=== PATIENT | male | born 1965 | race Caucasian/White ===

== ENCOUNTER 2024-07-03 05:23 | Observation (INO) ==
--- NOTE | 2024-05-29 15:37 | PAT Medication Instructions ---
Medication Instructions Date of Service May 29, 2024 Home Medications [place] 3 1 tab PO DAILY bictegravir 50 mg-emtricitabine 200 mg-tenofovir alafenam 25 mg tablet (Biktarvy) 1 tab PO HS omeprazole 40 mg capsule,delayed release 40 mg PO QAM rivaroxaban 20 mg tablet (Xarelto) 20 mg PO QAM rosuvastatin 20 mg tablet 20 mg PO QAM ASK your prescriber and surgeon bictegravir 50 mg-emtricitabine 200 mg-tenofovir alafenam 25 mg tablet (Biktarvy) 1 tab PO HS rivaroxaban 20 mg tablet (Xarelto) 20 mg PO QAM (From anesthesia perspective, Rivaroxaban/Xarelto needs to be stopped 72 hours/3 days before surgery. Please check if okay with doctor that prescribes this to you) STOP taking 2 weeks before surgery (or as soon as possible if surgery is within 2 weeks) [place] 3 1 tab PO DAILY Take morning of surgery With a small sip of water, OTHERWISE NOTHING TO EAT OR DRINK AFTER MIDNIGHT: omeprazole 40 mg capsule,delayed release 40 mg PO QAM rosuvastatin 20 mg tablet 20 mg PO QAM Other Notes If you have any questions please call us at [phone] or [phone] or [phone] or [phone]
--- NOTE | 2024-06-07 12:01 | Anesthesiology Consultation ---
Date of Service June 07, 2024 Assessment & Plan (1) Encounter for pre-operative examination: - Infectious disease screening: Per assessment on 06/07/24- No known recent infectious disease contacts or current infectious disease symptoms. - Outpatient joint assessment: Pt currently scheduled for inpatient pathway. If surgeon requests review for outpatient joint pathway, patient is not recommended candidate for outpatient joint program from anesthesia standpoint based on available information. - Xarelto instructions: patient made aware that for neuraxial anesthesia, Xarelto needs to be held 72 hours/3 days prior to surgery. Patient voiced understanding/will check if okay with prescriber. - Cardiology visit (06/30/23): He has had a history of syncope for many years.. mostly triggered by coughing, laughing, or standing up too quickly.. noted to have a DVT and PE's in March 2022.. He wore an extended Holter which did show a nocturnal pause of 3.1 seconds and an episode of [place] I, also while sleeping, but at least 2 episodes during the waking hours. He had no patient triggered episodes.. loop recorder implanted which showed nocturnal bradycardia. He has since started on CPAP due to sleep apnea, which is helping. There have been no concerning findings on the loop recording interrogation.. he has not had any syncope since February 2022.. He is now treated for sleep apnea and has had no concerning findings on loop recorder interrogation and no further episodes of syncope." ILR removed. No issues since. - Infectious disease note (12/22/23): Patient "medically cleared" for surgery. HIV "medication taken daily. HIV RNA viral load is 0/undetectable" - Patient acceptable risk for surgery pending upcoming PCP office visit note (Dr. Rowe/[facility], appt /). Chart Review Chart Review: Patient seen in Pre Admission Testing Teaching & Discussion Pre-Anesthesia Teaching/Discussion Notes: Instructed NPO after midnight before surgery,except medications with 15 cc of water. Medication instructions provided according to the PAT guidelines. History Surgery Operation Date: 07/03/24 07:00 Proposed Procedures p Left Total Knee Arthroplasty - Akash Jara MD Height/Weight Height: 5 ft 7 in Weight: 98.4 kg Allergies Allergy/AdvReac Type Severity Reaction Status Date / Time No Known Allergies Allergy Verified 05/29/24 14:32 Medications Home Medications Medication Instructions Recorded Confirmed Last Taken [place] 3 1 tab PO DAILY 05/29/24 05/29/24 Unknown bictegravir 50 mg-emtricitabine 1 tab PO HS 05/29/24 05/29/24 Unknown 200 mg-tenofovir alafenam 25 mg tablet (Biktarvy) omeprazole 40 mg capsule,delayed 40 mg PO QAM 05/29/24 05/29/24 Unknown release rivaroxaban 20 mg tablet (Xarelto) 20 mg PO QAM 05/29/24 05/29/24 Unknown rosuvastatin 20 mg tablet 20 mg PO QAM 05/29/24 05/29/24 Unknown Past Medical History Medical History Acid reflux Dyslipidemia History of COVID-19 (11/2023) Symptoms resolved History of skin cancer Basal cell, face HIV (human immunodeficiency virus infection) Hx of deep venous thrombosis LLE DVT > PE (2021) Taking Xarelto Hx of hepatitis Unknown type ~20 years ago- treated/"resolved" Hx of Lyme disease ~2009, treated Hx pulmonary embolism LLE DVT > PE (2021) Taking Xarelto Sleep apnea CPAP (compliant) Exercise / Class Metabolic Activity II 4-5 Yardwork/Stairs/Walk up hill (one FS: No CP, no SOB) Past Surgical History Surgical History History of loop recorder (2021) Following DVT/PE, since removed History of mandibular surgery Hx of arthroscopic knee surgery left Hx of colonoscopy Past Anesthesia History No Hx of Anesthesia Complications Mother: Slow to wake History of PONV No Hx of PONV and No Hx of Motion Sickness Social History Smoking Status: Never smoker Do You Dip or Chew Tobacco: No Hx Alcohol Use: Yes alcohol intake frequency: a few times a month Hx Substance Use: No substance use type: does not use Review of Systems Patient denies chest pain, shortness of breath, dyspnea on exertion, fever, chills, cough, wheezing, palpitations. Physical Exam Vital Signs BP 119/81 P 58 TEMP 98.5 SP02 95%RA RESP 16 Physical Full cervical extension range of motion. Full TMJ range of motion. TMD > 3.5 finger breaths Mallampati Score II Dentition: intact Lungs: clear throughout to auscultation Cardiac: regular rate and rhythm, no murmurs noted Spine: normal Carotid arteries: negative bruit Extremities: no LE edema Short neck Lab Results Anesthesia Preop Results Results Anesthesia Widget: WBC 6.91 K/ul (4.8-10.8) 06/07/24 Hgb 16.0 g/dl (14.0-18.0) 06/07/24 Hct 44.2 % (42.0-52.0) 06/07/24 Plt 153 K/uL (130-400) 06/07/24 Na 139 mmol/L (136-145) 06/07/24 K 4.1 mmol/L (3.5-5.1) 06/07/24 Cl 105 mmol/L (98-107) 06/07/24 CO2 29 mmol/L (21-32) 06/07/24 BUN 19 mg/dl (6-23) 06/07/24 Creat 1.27 mg/dl (0.6-1.4) 06/07/24 Glucose Level 88 mg/dl (70-99(Fasting)) 06/07/24 PT 12.8 Seconds (9.0-12.0) H 06/07/24 PTT 35 Seconds (21-31) H 06/07/24 INR 1.2 (0.9-1.1) H 06/07/24 Urine Color Yellow 06/07/24 Urine Appearance Clear (Clear) 06/07/24 Urine pH 5.5 (4.5-7.5) 06/07/24 Urine Specific Hansen 1.020 (1.000-1.030) 06/07/24 Urine Protein Negative (Negative) 06/07/24 Urine Glucose (UA) Negative (Negative) 06/07/24 Urine Ketones Negative (Negative) 06/07/24 Urine Blood Negative (Negative) 06/07/24 Urine Nitrite Negative (Negative) 06/07/24 Urine Bilirubin Negative (Negative) 06/07/24 Urine Urobilinogen Negative (Negative) 06/07/24 Urine Leukocyte Esterase Negative (Negative) 06/07/24 Blood Type A Positive 06/07/24 Antibody Screen NEGATIVE 06/07/24 Testing Laboratory Results Elevated coags- patient taking Xarelto* Electrocardiogram Date: 06/07/24 SB with first degree AVB at 55bpm. iRBBB. Chest X-Ray Date: 06/07/24 IMPRESSION: 1. An elevated right hemidiaphragm is seen. 2. No definite consolidation or pleural effusion is seen. 3. Cardiomegaly is seen.
[2024-07-03] MEDS: LR 500ML BOLUS, THEN 15ML/HR IV SCH (05:49)
[2024-07-03] MEDS: ACETAMINOPHEN 500 MG TAB PO SCH ×2 (05:49→14:04)
[2024-07-03] MEDS: Scopolamine 1 MG TDSY TD SCH (05:49)
[2024-07-03] MEDS: CeleBREX 200 MG CAP PO SCH (05:50)
[2024-07-03] MEDS: LR 60ML/HR IV SCH (05:50)
[2024-07-03] MEDS ORDERED: BUPIVACAINE 0.5 % 5 MG/1 ML PF 10ML VIAL ONE (06:21)
[2024-07-03] MEDS ORDERED: ROPIVACAINE 0.5% 5 MG/ML 30 ML VIAL ONE (06:21)
[2024-07-03] MEDS ORDERED: fentaNYL citrate PF 100 MCG/2 ML VIAL ONE ×2 (06:24→06:42)
[2024-07-03] MEDS ORDERED: MIDAZOLAM HCL 1 MG/ML 2ML VIAL ONE ×2 (06:24→06:42)
[2024-07-03] MEDS ORDERED: ONDANSETRON INJ 2 MG/ML 2 ML VIAL IV PRN ×2 (06:39→11:09)
[2024-07-03] MEDS ORDERED: fentaNYL citrate PF 100 MCG/2 ML VIAL IV PRN (06:39)
[2024-07-03] MEDS ORDERED: ATROPINE SULFATE 0.1 MG/ML 10ML SYR IV PRN (06:39)
[2024-07-03] MEDS ORDERED: ePHEDrine sulfate 50 MG/ML AMP IV PRN (06:39)
--- NOTE | 2024-07-03 06:40 | History & Physical Bridge Note ---
Date of Service July 03, 2024 History & Physical Bridge Note I have examined the patient, reviewed the History & Physical and in the interval since the performance of the History & Physical I have noted the following changes of clinical significance: no changes noted
[2024-07-03] MEDS: TRANEXAMIC ACID 1,000 MG **IV Pre-op IV SCH (06:43)
[2024-07-03] MEDS: ceFAZolin 2000MG 2,000 MG/15 ML SYR IV SCH ×2 (07:07→14:05)
[2024-07-03] MEDS ORDERED: PROPOFOL IV EMULSION 10 MG/ML 20 ML VIAL IV ONE (07:12)
[2024-07-03] MEDS ORDERED: KETAMINE HCL 10MG/ML SYR ONE (08:12)
[2024-07-03] MEDS: ROPIV 0.5% 246mg, Ketorolac 30mg, EPINEPHrine 0.5mg in NSS INFIL SCH (08:12)
[2024-07-03] MEDS: ORTHO JOINT ANESTHETIC ONE (08:12)
--- OUTSIDE RECORDS SUMMARY | 2024-07-03 08:31 | External Medical Summary | Continuity of Care Document ---
Author Name Unknown Organization [address] Address [address] [place] [phone] Care Team Providers Care Senior Customer Service Representative Name Role Phone Aric Ramirez Primary Care Physician [phone] Encounter [facility] [id number] Date(s): 06/07/24 - 06/07/24 [facility] [place] [address] [place] [id number] [address] Encounter Diagnosis Left knee pain(Discharge Diagnosis) - 06/07/24 S/P knee replacement(Discharge Diagnosis) - 06/07/24 Discharge Disposition: Home or Self Care Attending Physician: MD Marek, Akash A Encounter Type: Clinic Allergies, Adverse Reactions, Alerts No Known Allergies Assessment and Plan Extracted from: Title:Pre-Op Author:TOÑO Clark Madison Date :06/07/24 1.Left knee pain secondary to severe OA, pre op for LTKA The risks and benefits of surgery as well as the post operative course was explained and discussed with the patient. Written consent obtained. The patient's past medical history, surgeries, social history, medication list, allergies and PDMP were reviewed and confirmed with the patient. Patientdebbiell needmedical clearance. He is going to ask hisPCP when he needs to stop his xarelto and if hecan take celebrex with his xarelto after sx. He has appt with PAT.Preoperative orders were placed. We discussed postoperative pain medications includingoxycodone, tylenol, celebrex, (if cleared by PCP) as well as icing and elevating to control pain. We discussed post operative DVT prophylaxis,Patient will resume their previous anti-coagulation- xarelto. Patientmay needthe following additional medications after surgery -stool softener as needed to prevent constipation while on narcotics, Multi- vitamin OR Vitamin C 500mg BID x 2 weeks, Iron 324mg BID x 2 weeks to promote healing. The patient has been scheduled for post operative appointments.He will be doing physical therapy closer to home. Order was placed for walker and home PT for the first 2 weeks as well. The patient was given a preoperative booklet and we reviewed the most pertinent things leading up to the surgery and the day of surgery; including any assisted devices pt may need, when/who to call for the surgery time, where to arrive the day of surgery, NPO after midnight, medications to hold, prepping the skin with CHG to prevent infection etc. All of their questions and concerns were answered today. They were instructed to call our office if they have any further questions or concerns. Immunizations Given and Recorded Vaccine Date Status Refusal Reason influenza virus vaccine, inactivated 02/16/18 Give n influenza virus vaccine, inactivated 03/24/17 Give n influenza virus vaccine, inactivated 03/03/16 Vasquez rded influenza virus vaccine, inactivated 03/06/15 Give n influenza virus vaccine, inactivated 04/29/14 Give n influenza virus vaccine, inactivated 01/25/12 Vasquez rded influenza virus vaccine, inactivated 05/06/10 Vasquez rded influenza virus vaccine, inactivated 03/11/09 Vasquez rded pneumococcal 13-valent vaccine 05/29/12 Recorded pneumococcal 13-valent vaccine 04/18/11 Recorded pneumococcal 13-valent vaccine 05/06/10 Recorded pneumococcal 13-valent vaccine 08/06/99 Recorded tetanus/diphtheria/pertuss, acel (Tdap) 04/13/11 R ecorded influenza virus vaccine, H1N1 04/14/09 Recorded hepatitis B adult vaccine 10/16/03 Recorded hepatitis B adult vaccine 05/24/03 Recorded hepatitis B adult vaccine 04/15/03 Recorded hepatitis A adult vaccine 10/16/03 Recorded hepatitis A adult vaccine 04/15/03 Recorded Medications Biktarvy 50 mg-200 mg-25 mg oral tablet Start: 01/27/24 8:21:00 AM EDT, 1 tab, PO, Daily, Biktarvy dose for patients who weigh 25 kg and over Start Date: 01/27/24 Status: Ordered Repeat number: 1 Euflexxa 10 mg/mL intra-articular solution Start: 12/26/23 1:35:00 PM EDT, 20 mg =, intra-articular, q7days, Disp# 6 mL, Refills: 0, 3 syringes for L knee. Please ship to physician's office: Juaquin Jayde Hanson. [address] [place] [address], Note to Pharmacy: L KNEE JOSÉ LUIS [email or web address], Pharmacy: [facility] Start Date: 12/26/23 Stop Date: 01/16/24 Status: Ordered Quantity: 6.0 Unit: mL Repeat number: 1 glucosamine Start: 07/17/15 8:14:00 AM EDT Start Date: 07/17/15 Status: Ordered Repeat number: 1 multivitamin Start: 07/17/15 8:14:00 AM EDT, 1 tab, PO, Daily Start Date: 07/17/15 Status: Ordered Repeat number: 1 omega-3 polyunsaturated fatty acids ethyl esters 1000 mg oral capsule Start: 04/24/19 9:48:00 AM EST, See Instructions, Disp# 360 cap, Refills: 3, TAKE 2 CAPSULES TWICE A DAY, Pharmacy: [facility] Start Date: 04/24/19 Status: Ordered Quantity: 360.0 Unit: cap Repeat number: 4 PriLOSEC 20 mg oral delayed release capsule Start: 07/17/15 8:15:00 AM EDT Start Date: 07/17/15 Status: Ordered Repeat number: 1 rosuvastatin 10 mg oral tablet Start: 04/24/19 9:48:00 AM EST, See Instructions, Disp# 90 tab, Refills: 3, TAKE 1 TABLET DAILY, Pharmacy: [facility] Start Date: 04/24/19 Status: Ordered Quantity: 90.0 Unit: tab Repeat number: 4 Triumeq oral tablet Start: 04/24/19 9:48:00 AM EST, See Instructions, Disp# 90 tab, Refills: 3, TAKE 1 TABLET DAILY, Pharmacy: [facility] Start Date: 04/24/19 Status: Ordered Quantity: 90.0 Unit: tab Repeat number: 4 Vitamin B12 Start: 02/16/18 8:11:00 AM EDT Start Date: 02/16/18 Status: Ordered Repeat number: 1 Vitamin D3 Start: 06/01/23 3:06:00 PM EST, 2,000 mcg =, PO, Daily Start Date: 06/01/23 Status: Ordered Repeat number: 1 Xarelto 20 mg oral tablet Start: 01/27/24 8:21:00 AM EDT Start Date: 01/27/24 Status: Ordered Repeat number: 1 Mental Status 06/07/24 Barriers to Learning one year None evide nt Mandatory Health Literacy Documentation Yes Health Literacy Communication Barriers N ever Primary Language [place] Problem List Condition Confirmation Course Effective Dates Status H ealth Status Informant Chronic kidney disease Confirmed Active DVT (deep venous thrombosis) Confirmed Active ED (erectile dysfunction) Confirmed Active Effusion of knee Confirmed Active Hearing loss in left ear Confirmed Active HIV positive Confirmed Active 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 Hyperlipidemia Confirmed Active DJD (degenerative joint disease) of knee Confirmed Active OA (osteoarthritis) of knee Confirmed Active Left knee pain Confirmed Active Rash 1 Confirmed Active Weight monitoring Confirmed Active 1poss scabies Diagnosis Diagnosis Type Effective Dates Health Status Clinical Service Informant Left knee pain Discharge Diagnosis 06/07/24 S/P knee replacement Discharge Diagnosis 06/07/24 Non-Specified Procedures Procedure Date Related Diagnosis Body Site Status Colonoscopy 1 04/14/18 Completed Jaw Completed Knee, left bone fragment removal Completed 1sigmoid diverticulosis, 8mm ascending colon polypectomy: 5 year recall Vital Signs Most recent to oldest [Reference Range]: 1 Height 168 cm (06/07/24 10:45 AM) Patient Weight 99 kg (06/07/24 10:45 AM) Body Mass Index 35.08 kg/m2 (06/07/24 10:45 AM) Temperature [36.5-37.9 DegC] 36.5 DegC (06/07/24 10:45 AM) Heart Rate 80 bpm (06/07/24 10:45 AM) Blood Pressure 130/80mmHg (06/07/24 10:45 AM) Cuff Pulse Pressure 50 mmHg (06/07/24 10:45 AM) Social History Social History Type Response Smoking Status Never smoked cigaret jac Sex Male Sex Representation Male (finding) Ortho Outpt Note * TOÑO Clark Madison: PERFORM Event Display: Ortho Outpt Note Authored Date: [id number] Procedure: Left total knee arthroplastywith Dr. Jara Chief Complaint L knee consent History of Present Illness Patient is a59 year-oldfemalepresenting today for their pre-operative history and physical examination for the above-noted surgery with Merry. He has had a longstanding history of knee arthritis that he was initially treated with cortisone and Euflexxa injections in oral anti-inflammatories. These started to not be as beneficial for him and he elected to proceed with total knee replacement. Review of Systems DeniesRecent illnesses, colds/flu, pneumonia, COVID or COVID exposures; DeniesFevers, chills, malaise; DeniesChest pain, heart palpitations; DeniesShortness of breath, cough; DeniesHeadacheor blurry vision; DeniesAbdominal pain, nausea, vomiting, diarrhea, or urinary symptoms Physical Exam Vitals & Measurements T:36.5C HR:80(Monitored) BP:130/80 SpO2:97% HT:168cm WT:99kg WT:99.000kg(Dosing) BMI:35.08 General: Pt is well nourished, seated on the exam table AA&O, in NAD, calm and cooperative during exam HENT: Nontraumatic, no gross deformity, hearing and vision grossly in-tact, PERRL Heart: +S1, +S2, RRR, no murmurs appreciated Lungs: CTABL, no wheezing appreciated LeftKnee: Pt ambulateswithoutassisted devices with anantalgicgait Skin was intact.mildeffusion,noecchymosis,noerythema mildTTP overmedial joint line ROM: 0-100 Leftlower extremity strength: 5/5knee flexion and5/5extension;5/5 DF,5/5 PF Nolaxity of MCL with valgus stress at 0 and 30 degrees.Nolaxity of LCL with varus stress at 0and 30 degrees -Anterior drawer,-posterior drawer,-Eric's NVI distallywith 2+ DP pulse and no signs of vascular or lymphatic insufficiency Diagnostic Results Bilateral hips to ankles, Bilateral 45flexion, AP standing and left knee lateral and sunrise views obtained 06/01/[address] Card medial joint space narrowing, bone on bone. Marginal osteophytes with no acute fracture or dislocation. 16varus on left, 1varus on right. Assessment/Plan 1.Left knee pain secondary to severe OA, pre op for LTKA The risks and benefits of surgery as well as the post operative course was explained and discussed with the patient. Written consent obtained. The patient's past medical history, surgeries, social history, medication list, allergies and PDMP were reviewed and confirmed with the patient. Patientmarixa needmedical clearance. He is going to ask hisPCP when he needs to stop his xarelto and if hecan take celebrex with his xarelto after sx. He has appt with PAT.Preoperative orders were placed. We discussed postoperative pain medications includingoxycodone, tylenol, celebrex, (if cleared by PCP) as well as icing and elevating to control pain. We discussed post operative DVT prophylaxis,Patient will resume their previous anti-coagulation- xarelto. Patientmay needthe following additional medications after surgery -stool softener as needed to prevent constipation while on narcotics, Multi-vitamin OR Vitamin C 500mg BID x 2 weeks, Iron 324mg BID x 2 weeks to promote healing. The patient has been scheduled for post operative appointments.He will be doing physical therapy closer to home. Order was placed for walker and home PT for the first 2 weeks as well. The patient was given a preoperative booklet and we reviewed the most pertinent things leading up to the surgery and the day of surgery; including any assisted devices pt may need, when/who to call for the surgery time, where to arrive the day of surgery, NPO after midnight, medications to hold, prepping the skin with CHG to prevent infection etc. All of their questions and concerns were answered today. They were instructed to call our office if they have any further questions or concerns. 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 Hyperlipidemia Left knee pain OA (osteoarthritis) of knee Rash Weight monitoring Procedure/Surgical History Colonoscopy| Service Date: 04/14/2018JawKnee, left bone fragment removal Medications abacavir/dolutegravir/lamiVUDine(Triumeq oral tablet), See Instructions, 3 refills bictegravir/emtricitabine/tenofovir(Biktarvy 50 mg-200 mg-25 mg oral tablet), 1 tab, PO, Daily cholecalciferol(Vitamin D3), 2000 mcg, PO, Daily cyanocobalamin(Vitamin B12) glucosamine multivitamin, 1 tab, PO, Daily omega-3 polyunsaturated fatty acids(omega-3 polyunsaturated fatty acids ethyl esters 1000 mg oral capsule), See Instructions, 3 refills omeprazole(PriLOSEC 20 mg oral delayed release capsule) rivaroxaban(Xarelto 20 mg oral tablet) rosuvastatin(rosuvastatin 10 mg oral tablet), See Instructions, 3 refills sodium hyaluronate(Euflexxa 10 mg/mL intra-articular solution), 20 mg, intra- articular, q7days Allergies NKA Social History Smoking Status Never smoked cigarettes Alcohol - Comments: occasionally Tobacco - Denies Tobacco Use Family History Family history is unknown Immunizations Vaccine Date Status influenza virus vaccine, inactivated 02/16/2018 Given influenza virus vaccine, inactivated 03/24/2017 Given influenza virus vaccine, inactivated 03/03/2016 Recorded influenza virus vaccine, inactivated 03/06/2015 Given influenza virus vaccine, inactivated 04/29/2014 Given pneumococcal 13-valent vaccine 05/29/2012 Recorded influenza virus vaccine, inactivated 01/25/2012 Recorded pneumococcal 13-valent vaccine 2011 Recorded tetanus/diphtheria/pertuss, acel (Tdap) 04/13/2011 Recorded pneumococcal 13-valent vaccine 05/06/2010 Recorded influenza virus vaccine, inactivated 05/06/2010 Recorded influenza virus vaccine, H1N1 04/14/2009 Recorded influenza virus vaccine, inactivated 03/11/2009 Recorded hepatitis B adult vaccine 10/16/2003 Recorded hepatitis A adult vaccine 10/16/2003 Recorded hepatitis B adult vaccine 05/24/2003 Recorded hepatitis B adult vaccine 04/15/2003 Recorded hepatitis A adult vaccine 04/15/2003 Recorded pneumococcal 13-valent vaccine 08/06/1999 Recorded Recommendations Health Maintenance Pending(in the next year) OverDue Lipid Screening due02/16/23and every 1826day Colorectal Cancer Screening due04/14/23and every 5year Adult Influenza Vaccine due10/17/23and every 1year Due Adult COVID-19 Vaccination due06/07/24Unknown Frequency Adult Social Determinants of Health Screening due06/07/24Unknown Frequency Adult Tdap/Td Vaccine due06/07/24Unknown Frequency Pneumococcal Vaccine Adults and Adolescents with Chronic Illness due06/07/24One-time only Shingles Vaccine due06/07/24One-time only Satisfied(in the past 1 year) Satisfied Body Mass Index on06/07/24.Satisfied by EMILI Emanuel Kennie L Electronic Signature on File Electronically Reviewed/Signed by: Allison Clark PA-C Author Signature Dt/Tm:06/07/2024 03:08 PM Physician Estimator, Dept. of Orthopaedics and Sports Medicine [facility] - [address], [address] [place] [address] Electronically Reviewed/Signed by: MD Dara Tannerigner Signature Dt/Tm: 06/07/2024 04:23 PM [facility] Department of Orthopaedics and Rehabilitation [facility] [address], [place] [address] MK * Sara Welch: PERFORM, MODIFY Event Display: Ortho Outpt Note Authored Date: [id number] Name:SON QUINTANA Patient Number:[id number] :[id number] Date of Service:06/07/2024 CHIEF COMPLAINT: F/u left knee pain, pre-op visit HPI: Mini Wright presents today for f/uleft knee pre-opvisit. He completed the series of Euflexxa injections on 02/20/2024, which he states did not help alleviate his pain at all. In 2021, he had a blood clot and has since been taking Xarelto. Today he rates his pain as a 3/10. PHYSICAL EXAM: Focusing on the patient'sleftlower extremity: 2+ DP pulse Sensation to light touch is intact Motor to the gastroc soleus, tibialis anterior, and EHL is 5/5. Able to perform straight leg raise. + Medialjoint line tenderness. -Ashley's Ligamentous examination exhibits:stable [id number] anterior translation andfirm endpoint Posterior drawerstable Varus stress at 5 and 30stable Valgus stress at 5 and 30stable Trace Effusion Range of motion 5 to 120 + Medial patellar facet tenderness RADIOGRAPHY: Bilateral hips to ankles, Bilateral 45 flexion, AP standing and left knee lateral and sunrise views obtained 06/01/23 andreviewed by kavitha medial joint space narrowing, bone on bone. Marginal osteophytes with no acute fracture or dislocation. 16 varus on left, 1 varus on right. IMPRESSION: 59 year old male with left knee pain secondary to severeOA with varus alignment. GOAL: Decrease pain PLAN: After a lengthy discussion with the patient today regarding my above clinical findings, as well as reviewing their imaging with them, their treatment options of conservative management versus surgical intervention were discussed. - The risk and benefits of each were discussed. - Keep visit with PCP in early June to discuss Xarelto prescription with Celebrex. - The risks of surgery included but not limited to: Infection, bleeding, nerve damage, continued pain, progression of arthritis, stiffness, failure of the repair, failure of the hardware, and deep vein thrombosis. They would like to proceed with surgery and informed consent was signed for left TKA. - They will have a history and physical examination performed. The patient understood all my instructions and explanation: all their questions were satisfactorilyaddressed. ATTESTATION: I, Sara Welch, scribing forand in the presence of, Akash Jara, on this date,06/07/2024 10:57:46. Electronic Signature on File Electronically Reviewed/Signed by: Sara Welch Author Signature Dt/Tm:06/07/2024 11:00 AM Electronically Reviewed/Signed by: Akash Jara MD Cosigner Signature Dt/Tm: 06/07/2024 01:02 PM [facility] Department of Orthopaedics and Rehabilitation [facility] [address], [place] [address] MR Patient Care team information Care Team Related Persons Name: CHRIS QUINTANA Name: JUDE LAMB Insurance Providers Guarantor name: SON MARIA GUADALUPE LILIAN Health Plan Information #: 1 Payer: [employer] Member Number: [id number] Policy Number: NA Group Number: [id number] Health Plan Information #: 2 Payer: [employer] Member Number: [id number] Policy Number: NA Group Number: [id number]"
[2024-07-03] MEDS: TRANEXAMIC ACID 1,000 MG **IV Intra-op IV SCH (09:28)
[2024-07-03] MEDS: VANCOMYCIN HCL 1000MG/20ML VIAL ONE (09:33)
--- NOTE | 2024-07-03 10:01 | Post Operative Brief Note ---
Immediate Post Op Note Date of Surgery July 03, 2024 Pre & Post Diagnosis Operation Date: 07/03/24 07:00 Pre-Op Diagnosis: Left Knee Osteoarthritis Post-Op Diagnosis: Left Knee Osteoarthritis I identified the patient and participated in the time-out.: Yes Procedure Operation Date: 07/03/24 07:00 Actual Procedures p Left Total Knee Arthroplasty, Cemented(Left) - Akash Jara MD Surgeon Akash Jara MD Community Development Specialist Zachary Clark PA-C (No fellow avail) Estimated Blood Loss 75 Findings Consistent with Post-Op Diagnosis Fluids 1000 cc Specimens left knee contents Anesthesia Type MAC Spinal Regional Complications none
--- NOTE | 2024-07-03 10:02 | Operative Report ---
Post Operative Report Pre & Post Diagnosis Operation Date: 07/03/24 07:00 Pre-Op Diagnosis: Left Knee Osteoarthritis, Varus alignment, flexion contracture Post-Op Diagnosis: Left Knee Osteoarthritis, Varus alignment, flexion contracture I identified the patient and participated in the time-out.: Yes Procedure Operation Date: 07/03/24 07:00 Actual Procedures p [Left] Total knee replacement, Cemented, imageless computer assisted navigation (Left) - Akash Jara MD Surgeon Akash Jara MD Cloth Tester Quality Zachary Clark PA-C (No fellow avail) Estimated Blood Loss 75 Findings See Below Examined Under Anesthesia: ROM -- There was 10 degrees to 125 degrees of flexion Ligamentous examination -- revealed stable Eric, posterior drawer, varus and valgus stress at 10 and 30 degrees. [place] Grade IV changes of medial & lateral compartments, grade III changes patellofemoral compartment. Fluids 1000 cc Specimens left knee contents Anesthesia Type MAC Spinal Regional Complications none Indications This is a 59-year-old male who has clinical and radiographic findings consistent with osteoarthritis of the a left knee. I recommended that a left total knee replacement be performed. The patient understands the risks of surgery, which include but not limited to: bleeding, infection, re-operation, damage to nerves and arteries, continued knee pain, knee stiffness, DVT, and . The patient understands all these instructions and explanations, all his questions have been satisfactorily addressed, and the patient has elected to proceed. Informed consent was signed. Description of Procedure IMPLANTS: 1. Femur: Triathlon #6 Left PS. 2. Tibia: Triathlon #5 [place] with 12 x 50 mm stem. 3. Insert: Triathlon #5 x 13 mm PS X3 poly. 4. Patella: Triathlon A32 x 10 mm X3 poly. 5. Palacos cement + 1g Vancomycin powder. Zachary Clark PA-C is assisting with positioning, retracting, and closure due to fellow not available. Procedure: The patient was taken to the Operating Room and placed in the supine position after spinal and adductor canal nerve block was administered. My initials and a multidisciplinary time-out were used to identify the left leg as the correct operative limb. A tourniquet was placed high in the thigh. Prior to the incision, 2 grams of intravenous Ancef were given. One g of TXA was given pre- operatively and another after the tourniquet was released. The left leg was then prepped and draped in a standard sterile fashion. An Esmarch was used to exsanguinate the leg and the tourniquet was inflated to 250 mmHg. The planned mid-line 20 cm incision, curved medially to use a previous incision around the patella, was created exposing the extensor mechanism. The medial parapatellar arthrotomy was made and the patella was everted. The patella was addressed first. It was prepared by reaming from 25 mm down to 14 mm. An A32 button was found to fit best. The peg holes were made in the standard fashion. The femur was addressed next and using computer assisted OrthoAlign with 3 degrees of flexion and 1.5 degrees of varus (due to his large varus deformity), removing 10 mm in the standard fashion for the distal cut. The cut was made and the 4-in-1 cutting block for After making the Tibial cut and checking the balancing using OrthoAlign Lantern, the 4-in-1 cutting block for a size 6 femur was placed. These cuts and the cuts to place the box were made in the standard fashion. The tibia cut with using imageless computer assisted OrthoAlign, taking 2 mm from the medial low side. There was sufficient extension and flexion gap to fit a 13 mm spacer. A #5 Tibial baseplate fit well. Using the Lantern for ligament balance the medial side was tight and a medial release was preformed with improved balance. A trial with a 13 mm spacer showed excellent stability in both flexion and extension, with good ligament balance, and thumbs free patellar tracking. Range of motion of 0-130 degrees. The tibial baseplate was prepped for the keel and stem. A stem was used due to some areas of soft bone, to avoid subsidence. All components were removed. 90 ml of total knee cocktail were injected into the soft tissues and periosteum. All surfaces were copiously irrigated prior to placement of the components. The femoral component followed by Tibial baseplate were cemented in place and a 13 mm trial placed. Next, the patellar button was placed using the same cement. Once the cement had cured, the range of motion and stability were unchanged. The 13 mm X3 poly was placed. Again, the range of motion and stability were unchanged. The tourniquet was deflated. Hemostasis was obtained. Another 1g TXA was given. The extensor mechanism was closed with 1-0 Vicryl and 0 Stratafix with the knee bent approximately 60 degrees in a standard fashion. The peritenon and deep fascia was closed with 2-0 Vicryl. The subcutaneous layer was closed with 3-0 Vicryl. The skin was closed with Zipline and shield. The limb was cleaned and dried. 4x4 dressing was placed over top followed by ABDs, sterile Webril, and a foot to thigh Marquis bandage. The patient was then transferred to the Recovery Room in stable condition. The sponge and needle counts were correct. POST-OP INSTRUCTIONS: The patient will be WBAT. The patient will be admitted to the hospital. Complete 24-hour course antibiotics. Labs will be obtained during the stay. DVT prophylaxis will include re-starting Xarelto tomorrow am due to spinal, TEDs, and mechanical foot pumps. The dressing will be changed postop day #2-3 and covered with a Silverlon dressing. I attest to the content of the Intraoperative Record and any orders documented therein. Any exceptions are noted below.
--- NOTE | 2024-07-03 10:17 | Operative Report ---
Post Operative Report Pre & Post Diagnosis Operation Date: 07/03/24 07:00 Pre-Op Diagnosis: Left Knee Osteoarthritis Post-Op Diagnosis: Left Knee Osteoarthritis I identified the patient and participated in the time-out.: Yes Procedure Operation Date: 07/03/24 07:00 Actual Procedures p Left Total Knee Arthroplasty, Cemented(Left) - Akash Jara MD Surgeon Allison Clark PA-C Big Data Admin Zachary Clark PA-C (No fellow avail) Estimated Blood Loss 75 Findings Consistent with Post-Op Diagnosis Specimens none Description of Procedure Pt was taken to operating room and properly positioned for procedure. Refer to anesthesia's note for anesthesia used. Pt was given pre-op antibiotics. Prepped and draped in sterile fashion. I was present during the entire case and assisted with positioning, instrumentation, closure and dressings. Please see surgeon's op report for further detail. Pt was awake and transferred to PACU in stable condition I attest to the content of the Intraoperative Record and any orders documented therein. Any exceptions are noted below.
--- NOTE | 2024-07-03 10:53 | Anesthesiology Progress Note ---
Date of Service July 03, 2024 Anesthesia Post Procedure Vital Signs Vital Signs: Temp Pulse Resp BP BP Pulse Ox O2 Del Method 07/03/24 10:50 54 L 18 140/86 99 Room Air 07/03/24 10:40 97.7 F 56 L 20 129/77 95 Room Air 07/03/24 10:30 53 L 18 125/77 99 Oxymask 07/03/24 10:20 52 L 22 118/72 99 Oxymask 07/03/24 10:13 96.8 F L 54 L 14 107/75 94 Oxymask 07/03/24 05:41 97.7 F 56 L 20 154/92 H 97 Room Air O2 Flow Rate 07/03/24 10:50 07/03/24 10:40 07/03/24 10:30 2 07/03/24 10:20 4 07/03/24 10:13 6 07/03/24 05:41 Pain Intensity Left Knee: Pain Intensity: 4 Transfer of Care Handoff Completed per policy Notes Mental Status: alert / awake / arousable and participated in evaluation Patient Amnestic to Procedure: Yes Nausea / Vomiting: adequately controlled Pain: adequately controlled Airway Patency, RR, SpO2: stable & adequate BP & HR: stable & adequate Hydration State: stable & adequate Neuraxial Anesthesia: was administered and sensory block is resolving Anesthetic Complications: no major complications apparent and Pt Satisfied with anesthetic care
--- NOTE | 2024-07-03 10:54 | XRay Report ---
XR knee LT 1 or 2V routine CLINICAL HISTORY: Surgical Post Op COMPARISON: None FINDINGS: Left knee prosthesis shows no hardware complication. There is expected soft tissue gas. IMPRESSION: Unremarkable postoperative exam. ACT 112: Negative or not required by law. Electronically signed by: John Coelho M.D. 07/03/2024 10:53 AM
[2024-07-03] MEDS ORDERED: diphenhydrAMINE Capsule 25 MG CAP PO PRN (11:09)
[2024-07-03] MEDS ORDERED: METOCLOPRAMIDE HCL INJ 5 MG/ML 2 ML VIAL IV PRN (11:09)
[2024-07-03] MEDS ORDERED: NALOXONE HCL 0.4 MG/1 ML VIAL/CARP IV PRN (11:09)
[2024-07-03] MEDS ORDERED: MAGNESIUM HYDROXIDE SUSP 30 ML UDC PO PRN (11:09)
[2024-07-03] MEDS ORDERED: TAMSULOSIN HCL 0.4 MG CAP PO PRN (11:09)
[2024-07-03] MEDS ORDERED: bisacodyL 10 MG SUPP PR PRN (11:09)
[2024-07-03] MEDS: oxyCODONE HCL IR 5 MG TAB (IMMEDIATE RELEASE) PO PRN (12:38)
--- NOTE | 2024-07-03 13:09 | Hospitalist Consultation ---
Date of Consultation July 03, 2024 Assessment & Plan (1) Hx pulmonary embolism: (2) Bradycardia: (3) S/P left knee surgery: (4) Obstructive sleep apnea: Plan Chun is a 59-year-old male with a past medical history of dyslipidemia, history of PE (on Xarelto), acid reflux and sleep apnea utilizes CPAP, and HIV who presents to the hospital for elective knee surgery. #History of DVT/PE Per Ortho note - plan to resume Xarelto tomorrow Continue TEDs and SCDs Would recommend against scheduled celebrex with Xarelto (scheduled to start 07/17) #Bradycardic Mild asymptomatic, HR was documented low preoperatively. HR was 59 during preop appointment at PCP on 06/19 Suspect this is chronic, no home meds would be contributing. Will continue to monitor. #Left Knee OA S/p left TKA with Dr. Jara 07/03 EBL 75 - if AM labs not showing anemia, recommend d/c iron supplement. Pain control/abx /discharge per primary team #TONYA agreeable to use hospital issued CPAP GERD - continue PPI HLD - continue statin Thank you for allowing us to participate in the care of this patient, please reach out with any questions or concerns. Medicine will continue to follow for AM labs. Supervising Physician Co-Signing Physician Notes Patient seen and examined, chart reviewed, case discussed with Gi Porter i, PA-C and I agree with the assessment and plan as above except as otherwise noted above. All labs and images reviewed Seen at the bedside. Pain 2/10 improved from prior. No acute concerns. Agree with above History of Present Illness Reason for Consultation: Medical management Requesting Physician: Dr. Jara Attending Physician: Akash Jara MD History of Present Illness Chun is a 59-year-old male with a past medical history of dyslipidemia, history of PE (on Xarelto), acid reflux and sleep apnea utilizes CPAP, and HIV who presents to the hospital for elective knee surgery. He is seen post operatively in room 317. Reports having a mild ache in his knee but manageable. He denies nausea and has eaten since the OR. Urinating without difficulty. He did not sagrario ng his home CPAP machine and is agreeable to use ours. highly lower heart rats in the 50s, but asymptomatic Allergies Allergy/AdvReac Type Severity Reaction Status Date / Time No Known Allergies Allergy Verified 07/03/24 05:39 Home Medications Medication Instructions Recorded Confirmed Type [place] 3 1 tab PO DAILY 05/29/24 07/03/24 History bictegravir 50 mg-emtricitabine 1 tab PO HS 05/29/24 07/03/24 History 200 mg-tenofovir alafenam 25 mg tablet (Biktarvy) omeprazole 40 mg capsule,delayed 40 mg PO QAM 05/29/24 07/03/24 History release rivaroxaban 20 mg tablet (Xarelto) 20 mg PO QAM 05/29/24 07/03/24 History rosuvastatin 20 mg tablet 20 mg PO QAM 05/29/24 07/03/24 History Patient History Medical History Acid reflux Dyslipidemia History of COVID-19 (11/2023) Symptoms resolved History of skin cancer Basal cell, face HIV (human immunodeficiency virus infection) Hx of deep venous thrombosis LLE DVT > PE (2021) Taking Xarelto Hx of hepatitis Unknown type ~20 years ago- treated/"resolved" Hx of Lyme disease ~2009, treated Hx pulmonary embolism LLE DVT > PE (2021) Taking Xarelto Sleep apnea CPAP (compliant) Surgical History History of loop recorder (2021) Following DVT/PE, since removed History of mandibular surgery Hx of arthroscopic knee surgery left Hx of colonoscopy Social History Smoking Status: Never smoker Second Hand Exposure: No; Do You Dip or Chew Tobacco: No; Tobacco Cessation Education Requested by Patient: No Hx Alcohol Use: Yes Hx Substance Use: No Preferred Language: Martiniquais Communication Ability: Effective 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 gely wrap and ice in place over left knee. Neuro: A&O x3, Skin: intact, no lesions noted Results & Data Results & Data Vital Signs (Past 12 Hours) Vital Signs Temp Pulse Pulse Resp BP BP Pulse Ox 07/03/24 11:54 55 L 18 135/83 95 07/03/24 11:25 97.7 F 46 L 18 136/76 97 07/03/24 10:55 97.9 F 52 L 20 147/86 H 96 07/03/24 10:50 54 L 18 140/86 99 07/03/24 10:40 97.7 F 56 L 20 129/77 95 07/03/24 10:30 53 L 18 125/77 99 07/03/24 10:20 52 L 22 118/72 99 07/03/24 10:13 96.8 F L 54 L 14 107/75 94 07/03/24 05:41 97.7 F 56 L 20 154/92 H 97 O2 Del Method O2 Flow Rate 07/03/24 11:54 Room Air 07/03/24 11:25 Room Air 07/03/24 10:55 Room Air 07/03/24 10:50 Room Air 07/03/24 10:40 Room Air 07/03/24 10:30 Oxymask 2 07/03/24 10:20 Oxymask 4 07/03/24 10:13 Oxymask 6 07/03/24 05:41 Room Air PG Care Time/CCT Total # of Minutes Spent Total Time Spent with Patient: Total time spent is greater than 50% in coordination of care (as documented) at patient's floor/unit and/or counseling patient: Coding Level of Care Code 40887 IN/OBS CONSULT LVL 4,60M Diagnoses Hx pulmonary embolism Z86.711 Bradycardia R00.1 S/P left knee surgery Z98.890 Obstructive sleep apnea G47.33
[2024-07-03] MEDS: HYDROmorphone INJ 0.5 MG/0.5 ML SYR IV PRN (14:04)
[2024-07-03] MEDS: Scopolamine CHECK PATCH PLACEMENT SCH (14:05)
[2024-07-03] MEDS: ASCORBIC ACID 500 MG TAB PO SCH (16:50)
[2024-07-03] MEDS: FERROUS GLUCONATE 324 MG TAB PO SCH (16:50)
[2024-07-03] MEDS: BIKTARVY PO SCH (20:42)
[2024-07-03] MEDS: SENNA 8.6 MG TAB PO SCH (20:45)
[2024-07-03] MEDS: DOCUSATE SODIUM 100 MG CAP PO SCH (20:45)
[2024-07-04 06:25] LABS: Hematocrit (blood only) 39.2 % (42.0-52.0); Hemoglobin 14.2 g/dl (14.0-18.0); Mean Corpuscular Hemoglobin 32.3 pg (25.0-34.0); Mean Corpuscular Hgb Conc 36.2 g/dL (32.0-36.0); Mean Corpuscular Volume 89.3 fL (80.0-100.0); Mean Platelet Volume 8.4 fL (9.4-12.4); Platelet Count 166 K/uL (130-400); RDW Coefficient of Variation 11.7 % (11.5-14.5); RDW Standard Deviation 37.2 fL (36.4-46.3); Red Blood Count 4.39 M/uL (4.70-6.10); White Blood Count 10.27 K/ul (4.8-10.8)
[2024-07-04 06:39] LABS: BUN Creatinine Ratio 13.7 (10-20); Calcium 8.7 mg/dl (8.6-10.3); Creatinine Clr Calc Pharmacy 74.7 ml/min; Potassium 4.1 mmol/L (3.5-5.1)
[2024-07-04 07:38] VITALS: O2SAT 95
--- NOTE | 2024-07-04 08:07 | Hospitalist Progress Note ---
Date of Service July 04, 2024 Assessment & Plan (1) Hx pulmonary embolism: (2) Bradycardia: (3) S/P left knee surgery: (4) Obstructive sleep apnea: Plan Chun is a 59-year-old male with a past medical history of dyslipidemia, history of PE (on Xarelto), acid reflux and sleep apnea utilizes CPAP, and HIV who presents to the hospital for elective knee surgery. #Left Knee OA S/p left TKA with Dr. Jara 07/03 EBL 75 - if AM labs not showing anemia, recommend d/c iron supplement. Pain control/abx /discharge per primary team 07/04: WBC wnl. Hgb 16--> 14.2 from surgery/ABL and dilutional aspect suspected. Vital signs stable. #History of DVT/PE Per Ortho note - plan to resume Xarelto tomorrow Continue TEDs and SCDs Would recommend against scheduled celebrex with Xarelto (scheduled to start 07/17) #Bradycardic Mild asymptomatic, HR was documented low preoperatively. HR was 59 during preop appointment at PCP on 06/19 Suspect this is chronic, no home meds would be contributing. Will continue to monitor. #TONYA agreeable to use hospital issued CPAP GERD - continue PPI HLD - continue statin Thank you for allowing us to participate in the care of this patient, please reach out with any questions or concerns. Medicine will continue to follow for AM labs. Admission and Anticipated Discharge Date Admission Date: July 03, 2024 Results & Data Results & Data Vital Signs (Past 12 Hours) Vital Signs Temp Pulse Pulse Pulse Resp BP BP 07/04/24 07:35 37.3 C 82 18 160/88 H 07/04/24 03:02 36.7 C 64 16 147/84 H 07/03/24 22:55 37.2 C 65 18 148/85 H 07/03/24 22:04 63 24 Pulse Ox O2 Del Method 07/04/24 07:35 95 Room Air 07/04/24 03:02 94 Room Air 07/03/24 22:55 95 Room Air, CPAP 07/03/24 22:04 95 PG Care Time/CCT Total # of Minutes Spent Total Time Spent with Patient: Total time spent is greater than 50% in coordination of care (as documented) at patient's floor/unit and/or counseling patient: Coding Diagnoses Hx pulmonary embolism Z86.711 Bradycardia R00.1 S/P left knee surgery Z98.890 Obstructive sleep apnea G47.33
[2024-07-04] MEDS: MULTIVITAMIN TAB PO SCH (08:16)
[2024-07-04] MEDS: PANTOprazole 40 MG TAB PO SCH (08:16)
[2024-07-04] MEDS: OMEGA-3 (PURIFIED FISH OIL) 1 GM CAP PO SCH (08:16)
[2024-07-04] MEDS: ROSUVASTATIN CALCIUM 20 MG TAB PO SCH (08:16)
--- NOTE | 2024-07-04 09:49 | Orthopedic Progress Note ---
Date of Service July 04, 2024 Assessment & Plan (1) S/P left knee surgery: Plan: POD 1-left TKA with Dr. Jara. Out of bed with PT and OT today. Patient may weight-bear as tolerated with the assistance of a walker. Ice and elevate left lower extremity to relieve pain and swelling. His postoperative dressings were removed today and Mepilex dressing was applied to the left knee. FLETCHER stockings x 3 weeks after surgery and AV impulse boots while in hospital. Xarelto has been resumed this morning. As per the recommendation of the hospitalist will discontinue his Celebrex. Vitamin C and iron supplement for 2 weeks after surgery. Encouraged bedside exercises Case management for disposition needs. He has been arranged with [facility] home health. If safe and PT and OT and pain well-controlled will plan for discharge to home later today. Discharge instructions were reviewed. Appreciate Hospitalist assistance/recommendations. Follow-up as scheduled in approximately [address] Jara will be notified of findings today. Admission and Anticipated Discharge Date Admission Date: July 03, 2024 Lisbet Mccollum is sitting up in bed. Finished breakfast. Not much of an appetite but has been eating. Denies any postoperative nausea or vomiting. He has been out of bed to the bathroom with nursing today. States that he was a little hesitant to bear weight but it did go okay. He has been using his walker. States that his pain is a 4 out of 10 today but improved from an 8 out of 10 yesterday. He has had some oxycodone this morning and states that it does seem to be controlling his pain. He has not been out of bed with physical therapy or occupational therapy yet. Physical Exam Musculoskeletal: Exam of his left lower extremity: No distal edema. Distal sensation is normal. Distal pulses are 2+. Full ankle range of motion with normal strength. Calf is supple and nontender. Postoperative dressings were clean, dry and intact moved today. The Zipline is in place. Trace effusion of the left knee joint. No prepatellar effusion. No surrounding erythema, ecchymosis or fracture blisters present. He is unable to independently straight leg raise his left leg. Results & Data Vital Signs (Past 12 Hours) Vital Signs Temp Pulse Pulse Pulse Resp BP BP 07/04/24 07:35 37.3 C 82 18 160/88 H 07/04/24 03:02 36.7 C 64 16 147/84 H 07/03/24 22:55 37.2 C 65 18 148/85 H 07/03/24 22:04 63 24 Pulse Ox O2 Del Method 07/04/24 07:35 95 Room Air 07/04/24 03:02 94 Room Air 07/03/24 22:55 95 Room Air, CPAP 07/03/24 22:04 95 Laboratory Results 07/04/24 Range/Units 06:03 WBC 10.27 (4.8-10.8) K/ul RBC 4.39 L (4.70-6.10) M/uL Hgb 14.2 (14.0-18.0) g/dl Hct 39.2 L (42.0-52.0) % MCV 89.3 (80.0-100.0) fL MCH 32.3 (25.0-34.0) pg MCHC 36.2 H (32.0-36.0) g/dL RDW Std Deviation 37.2 (36.4-46.3) fL RDW Coeff of Tono 11.7 (11.5-14.5) % Plt Count 166 (130-400) K/uL MPV 8.4 L (9.4-12.4) fL Sodium 133 L (136-145) mmol/L Potassium 4.1 (3.5-5.1) mmol/L Chloride 99 (98-107) mmol/L Carbon Dioxide 30 (21-32) mmol/L Anion Gap 4 (3-11) BUN 16 (6-23) mg/dl Creatinine 1.17 (0.6-1.4) mg/dl Est Cr Clr Drug Dosing 74.7 ml/min eGFR 70.92 BUN/Creatinine Ratio 13.7 (10-20) Glucose 116 H (70-99(Fasting)) mg/dl Calcium 8.7 (8.6-10.3) mg/dl Diagnostic Findings Knee X-Ray 07/03/24 10:24 XR knee LT 1 or 2V routine CLINICAL HISTORY: Surgical Post Op COMPARISON: None FINDINGS: Left knee prosthesis shows no hardware complication. There is expected soft tissue gas. IMPRESSION: Unremarkable postoperative exam. ACT 112: Negative or not required by law. Electronically signed by: John Coelho M.D. 07/03/2024 10:53 AM
--- NOTE | 2024-07-04 09:49 | Discharge Summary ---
Date of Service July 04, 2024 Discharge Data Consultations 07/03/24 11:09 Consult Hospitalist Routine Procedures Performed Operation Date: 07/03/24 07:00 Actual Procedures p Left Total Knee Arthroplasty, Cemented(Left) - Akash Jara MD Hospital Course (1) S/P left knee surgery: Patient was kept in observation at [facility] after undergoing an elective left total knee arthroplasty with Dr. Jara on July 03, 2024. His surgery was performed with spinal anesthesia and a peripheral nerve block. He tolerated the procedure well without any intraoperative complications. He was given 2 g of IV Ancef for surgical prophylaxis which was continued for 24 hours after surgery. He was given 1 g of IV TXA preoperatively for bleeding prophylaxis and another dose at the end of the procedure. In the recovery room, x-rays were taken of his left knee which showed a stable left knee prosthesis with no evidence of fracture or bony abnormality. He was allowed out of bed, weight-bear as tolerated on his left leg with the assistance of a walker. His home medications were resumed. His Xarelto was held until it was resumed on July 04, 2024. He was started on IV Dilaudid, oxycodone, Tylenol and Celebrex for postoperative pain control. At the recommendations of the service the Celebrex was discontinued due to the Xarelto. Hospitalist consult was placed for postoperative medical management. He was also provided with FLETCHER stockings to be utilized for 3 weeks after surgery and AV impulse boots while in the [facility] for DVT prophylaxis. Physical therapy and Occupational Therapy consults were placed. He was seen by them on postop day 1. He did well out of bed with the assistance of a walker and was deemed safe for discharge to home. On postoperative day 1 his postoperative dressing was also removed and a Mepilex dressing was applied to the left knee. Case management was involved for disposition needs. [facility] home health was arranged. He was discharged to his home in stable condition on July 04, 2024. Discharge instructions were reviewed. All questions were answered.
[2024-07-04 11:18] VITALS: BP 170/92; PULSE 76; RESP 17; TEMP 98.4
[2024-07-04] MEDS ORDERED: RIVAROXABAN 20 MG TAB PO SCH (16:30)
[2024-07-17] MEDS ORDERED: CeleBREX 200 MG CAP PO SCH (21:00)
== END 2024-07-04 11:51 | disposition home health service (06) ==
LOC: ASU 05:23 → 3E 05:23